=== PATIENT | female | born 1995 | race Caucasian/White ===

== ENCOUNTER 2019-06-15 03:24 | Emergency (ER) | payer OTHER ==
[~2019-06-15] VITALS: Ht 165.1 cm; Wt 102.0 kg
[2019-06-15 03:26] VITALS: BP 148/87
== END 2019-06-15 05:20 | disposition left against medical advice (07) ==
LOC: ER 05:14
DX: F41.0 Panic disorder [episodic paroxysmal anxiety] (principal); Z53.21 Procedure and treatment not carried out due to patient leaving prior to being seen by health care provider